=== PATIENT | female | born 1985 | race Two or more races ===

== ENCOUNTER 2016-05-20 02:56 | Emergency (ER) | payer MEDICAID ==
[2016-05-20] MEDS ORDERED: LORazepam 1 MG TAB PO ONE (03:00)
--- NOTE | 2016-05-20 03:03 | EDPHY ---
H & P HPI/ROS: HPI CHIEF COMPLAINT: "I feel like I am going to have a seizure" HISTORY OF PRESENT ILLNESS: This patient 30-year-old female, she is an alcoholic, she presents emergency room from the bus stop after she called 911 because she thought she was going to have a seizure. She tells me she drinks alcohol daily her choice of drink is chin, she tells me her last drink was a day and a half ago. She felt as if she was going to have an alcohol withdrawal seizure. Of note upon arrival here in the emergency room she appears well nontoxic no acute distress she does not appear to be having any tremors, she is not tachycardic, she is not shaking. She speaking coherently. She denies chest pain or shortness of breath. Denies nausea vomiting. Denies headache. She tells me she has not had a drink and 1/2 days. However breath alcohol upon arrival to the emergency room is 271. Past Medical History: Alcohol withdrawal seizures, hypertension, medication noncompliance Past Surgical History: no recent pertinent surgical history Social History: homeless daily alcohol use, denies illicit drugs or tobacco Family History: noncontributory ROS REVIEW OF SYSTEMS: A comprehensive 10 point review of systems is otherwise negative aside from elements mentioned in the history of present illness. Exam Constitutional smells of alcohol, slight slur speech, appears well nontoxic triage nursing summary reviewed, vital signs reviewed, awake/alert. Eyes normal conjunctivae and sclera, EOMI, PERRLA. HENT normal inspection, atraumatic, moist mucus membranes, no epistaxis, neck supple/ no meningismus, no raccoon eyes. Respiratory clear to auscultation bilaterally, normal breath sounds, no respiratory distress, no wheezing. Cardiovascular rate normal, regular rhythm, no murmur, no edema, distal pulses normal. Gastrointestinal soft, non-tender, no rebound, no guarding, normal bowel sounds, no distension, no pulsatile mass. Genitourinary no CVA tenderness. Musculoskeletal no midline vertebral tenderness, full range of motion, no calf swelling, no tenderness of extremities, no meningismus, good pulses, neurovascularly intact. Skin pink, warm, & dry, no rash, skin atraumatic. Neurologic horizontal beating nystagmus consistent acute alcohol intoxication, awake, alert and oriented x 3, AAOx3, moves all 4 extremities equally, motor intact, sensory intact, CN II-XII intact, normal vision, normal speech. Psychiatric normal mood/affect. Heme/Lymph/Immune no lymphadenopathy. Differential Diagnosis: Includes but is not limited to in a particular order anxiety, dehydration, occult trauma, alcohol intoxication Medical Decision Making: Plan for this patient should be placed on cardiac/vascular sonographer, will obtain a breath alcohol level to see if she is truly honest about not having drank 1.5 days ago. Re-evaluation: Breath alcohol at time 3:02 a.m. is [id number]: re-evaluation at this time this patient is resting comfortably no acute distress she ambulated well to the bathroom without any difficulty. Stable gait. No ataxia. No longer acutely intoxicated. She is agreeable for discharge. No focal complaints. Source: Patient, EMS Constitutional: Initial Vital Signs Temperature (C) 36.7 C 05/20/16 03:02 Heart Rate 93 05/20/16 03:02 Respiratory Rate 16 05/20/16 03:02 Blood Pressure 155/113 H 05/20/16 03:02 O2 Sat (%) 93 05/20/16 03:02 O2 Delivery Mode Room Air O2 (L/minute) 2 Allergies/Adverse Reactions: No Known Allergies Allergy (Unverified 05/20/16 03:06) Departure - Departure Disposition: Home, Routine, Self-Care Clinical Impression: Alcohol intoxication Qualifiers: Complication of substance-induced condition: uncomplicated Qualified Code(s): F10.120 - Alcohol abuse with intoxication, uncomplicated Condition: Good Instructions: Alcohol Intoxication (ED) Referrals: Patient,NotPresent [Primary Care Provider] - As per Instructions
[2016-05-20 06:59] VITALS: BP 109/71; PULSE 88; RESP 18; TEMP 97; O2SAT 97
== END 2016-05-20 06:59 | disposition home or self-care (01) ==
DX: F10.120 Alcohol abuse with intoxication, uncomplicated (principal); I10 Essential (primary) hypertension